=== PATIENT | male | born 1990 | race Caucasian/White ===

== ENCOUNTER 2019-10-29 20:11 | Emergency (ER) | payer OTHER ==
[2019-10-29] MEDS ORDERED: Ciproflox/Dexameth OTIC.SUSP 7.5 ML BTL RIGHT EAR ONE (20:28)
[2019-10-29] MEDS ORDERED: NS 0.9% 1000 ml BAG 1,000 ML IV ONE (20:43)
[2019-10-29 20:54] LABS: ABS Basophils 0.1 10^3/ul (0-0.2); ABS Lymphocytes 1.9 10^3/ul (1.0-4.8); ABS Monocytes 1.4 10^3/ul (0-0.8); Eosinophil % 0.3 %; Hematocrit 46 % (42-52); Hemoglobin 15.7 g/dL (14.0-18.0); Lymphocyte % 14.7 %; Mean Corpuscular HGB Conc 34 g/dL (31-36); Mean Corpuscular Hemoglobin 31 pg (27-31); Mean Corpuscular Volume 90 fL (80-94); Mean Platelet Volume 7.6 fL (7.4-10.4); Platelet Count 323 10^3/uL (150-450); Red Blood Count 5.14 10^6 /uL (4.18-5.48); Red Cell Distribution Width 14 % (10-15); White Blood Count 12.7 10^3/uL (3.5-10.8)
[2019-10-29 21:00] LABS: Rapid Strep Molecular Negative (Negative)
[2019-10-29 21:52] VITALS: BP 122/78
[2019-10-29 22:40] LABS: Albumin 4.5 g/dL (3.2-5.2); Calcium 9.7 mg/dL (8.6-10.3); Potassium 3.9 mmol/L (3.5-5.0); Total Bilirubin 0.5 mg/dL (0.2-1.0)
[2019-10-29 22:46] LABS: Albumin/Globulin Ratio 1.4 (1-3); BUN/Creatinine Ratio 10.3 (8-20); C Reactive Protein 57.07 mg/L (<8.01); EGFR African American 89.5 (>60); EGFR Non-African American 73.9 (>60); Globulin 3.3 g/dL (2-4); Total Protein 7.8 g/dL (6.4-8.9)
== END 2019-10-29 21:50 | disposition home or self-care (01) ==
LOC: ED 20:11